=== PATIENT | male | born 1955 | race Caucasian/White ===

== ENCOUNTER → 2017-12-29 | Outpatient (CLI) | payer BC ==
[~2017-12-29] MED LIST: REGADENOSON 0.4 MG/5 ML DISP.SYRIN. IV
== END | disposition home or self-care (01) ==
LOC: PCVCIMAG 15:14
DX: Z01.818 Encounter for other preprocedural examination (principal); R07.89 Other chest pain; R06.09 Other forms of dyspnea; E66.9 Obesity, unspecified; Z68.32 Body mass index [BMI] 32.0-32.9, adult
CPT/HCPCS: 78452; 93017; A9500; J2785

== ENCOUNTER → 2020-05-02 | Outpatient (CLI) | payer BC ==
[~2020-05-02] MED LIST changes: +ASCO500C PO; +ASPI-424 PO; +CALC-31 PO; +CLOP75TA PO; +DIPH25CA58 PO; +EZET10TA20 PO; +GLUC-11 PO; +ISOS30TA19 PO; +LISI-338 PO; +LISI10TA2 PO; +LYSI500T8 PO; +METF500T16 PO; +METO25TA4 PO; +NITR0.4T22 SL; +OMEG1CAP27 PO; +PRAV40TA2 PO; -REGADENOSON 0.4 MG/5 ML DISP.SYRIN. IV; +SILD20TA4 PO; +UBID300C PO
== END ==
LOC: LAB 15:09
PROVIDERS: ATTEND Internal Medicine Cardiovascular Disease
DX: Z01.812 Encounter for preprocedural laboratory examination (principal); Z20.828 Contact with and (suspected) exposure to other viral communicable diseases
CPT/HCPCS: U0003

== ENCOUNTER 2020-05-06 10:54 | Outpatient (CLI) | payer BC ==
[2020-05-06] VITALS (9 sets, daily range): BP systolic 101–134; BP diastolic 62–78
[~2020-05-06] VITALS: Ht 182.9 cm; Wt 104.3 kg
[2020-05-06 11:42] LABS: HEMATOCRIT 42.8 % (39.0-53.0); HEMOGLOBIN 15.1 g/dL (13.0-17.5); RED BLOOD COUNT 4.65 x10^6/uL (4.30-5.70); WHITE BLOOD COUNT 4.1 x10^3/uL (4.0-11.0)
[2020-05-06 11:49] LABS: CALCIUM 8.6 mg/dL (8.5-10.1); CREATININE 0.8 mg/dL (0.7-1.3); GFR 97.3; POTASSIUM 4.4 mmol/L (3.5-5.1)
[2020-05-06 11:50] LABS: PROTHROMBIN TIME PATIENT 13.9 SEC (11.7-14.0)
[2020-05-06] MEDS ORDERED: LIDOCAINE 1% PF 2 ML VIAL. ONE (12:21)
[2020-05-06] MEDS ORDERED: HEPARIN for ARTERIAL LINE 1,500 ML ONE (12:21)
[2020-05-06] MEDS ORDERED: IOHEXOL 300 MG/ML 100ML VIAL. ONE (12:21)
[2020-05-06] MEDS ORDERED: fentaNYL PF VIAL 100 MCG/2 ML VIAL ONE (12:30)
[2020-05-06] MEDS ORDERED: VERAPAMIL 5 MG/2 ML VIAL. ONE (12:31)
[2020-05-06] MEDS ORDERED: NITROGLYCERIN 200 MCG/2 ML SYRINGE FOR CATH/VASC LAB. ONE ×2 (12:31→13:20)
[2020-05-06] MEDS ORDERED: MIDAZOLAM HCL/PF 2 MG/2 ML VIAL. ONE (12:31)
[2020-05-06] MEDS ORDERED: HEPARIN for IV BOLUS 10,000 UNIT/10 ML VIAL. ONE (12:31)
--- NOTE | 2020-05-06 12:59 | PDOC ---
MODERATE SEDATION ASSESSMENT RISKS/ALTERNATIVES Risks/Alternatives Risks and alternatives of this type of sedation and procedure discussed with: RISK/ALTERNATIVES: Patient H & P ON CHART H & P H & P on chart and reviewed for co-morbid conditions and appropriate labs. H&P ON CHART: Yes STATUS PREG STATUS ASSESSED: N/A MEDS/ALLERGIES REVIEWED Meds/Allergies Reviewed Medications and Allergies including time and route of recently administered narcotics and sedatives. MEDS/ALLERGIES REVIEWED: Yes ASA RATING ASA RATING: II AIRWAY ASSESSMENT Airway Assessment Airway patency, oral function limitations, presence of caps, crowns, dentures, partials, and ability to extend neck assessed. AIRWAY ASSESSMENT: Yes MALLAMPATI SCORE MALLAMPATI SCORE: II PRE-SEDATION ASSESSMENT PRE-SEDATION ASSESSMENT: Yes DEJAN JOHNSON MD May 06, 2020 12:59
[2020-05-06] MEDS ORDERED: MIDAZOLAM HCL/PF 2 MG/2 ML VIAL. IV ONE (13:15)
[2020-05-06] MEDS ORDERED: LIDOCAINE 1% PF 2 ML VIAL. INJ ONE (13:15)
[2020-05-06] MEDS ORDERED: VERAPAMIL 5 MG/2 ML VIAL. IART ONE (13:15)
[2020-05-06] MEDS ORDERED: HEPARIN for IV BOLUS 10,000 UNIT/10 ML VIAL. IART ONE (13:15)
[2020-05-06] MEDS ORDERED: CONTRAST GIVEN. MC PRN (13:15)
[2020-05-06] MEDS ORDERED: NITROGLYCERIN 200 MCG/2 ML SYRINGE FOR CATH/VASC LAB. IART ONE (13:15)
[2020-05-06] MEDS ORDERED: IV NORMAL SALINE 500ML BAG 500 ML IV ONE (13:15)
[2020-05-06] MEDS ORDERED: fentaNYL PF VIAL 100 MCG/2 ML VIAL IV ONE (13:15)
[2020-05-06] MEDS ORDERED: IOHEXOL 300 MG/ML 100ML VIAL. IART ONE (13:15)
[2020-05-06] MEDS ORDERED: TIROFIBAN 5MG -0.9% NS 100 ML IV ONE (13:20)
[2020-05-06] MEDS ORDERED: EZET10TA20 PO (13:25)
[2020-05-06] MEDS ORDERED: LISI10TA2 PO (13:33)
[2020-05-06] MEDS ORDERED: DIPH25CA58 PO (13:33)
[2020-05-06] MEDS ORDERED: ASCO500C PO (13:33)
[2020-05-06] MEDS ORDERED: ADENOSINE 90 MG/30 ML VIAL. IV ONE (13:33)
[2020-05-06] MEDS ORDERED: PRAV40TA2 PO (13:33)
[2020-05-06] MEDS ORDERED: SILD20TA4 PO (13:33)
[2020-05-06] MEDS ORDERED: OMEG1CAP27 PO (13:37)
[2020-05-06] MEDS ORDERED: CALC-31 PO (13:37)
[2020-05-06] MEDS ORDERED: GLUC-11 PO (13:37)
[2020-05-06] MEDS ORDERED: METO25TA4 PO (13:37)
[2020-05-06] MEDS ORDERED: METF500T16 PO (13:37)
[2020-05-06] MEDS ORDERED: ASPI-424 PO (13:37)
[2020-05-06] MEDS ORDERED: NITR0.4T22 SL (13:37)
[2020-05-06] MEDS ORDERED: LYSI500T8 PO (13:37)
[2020-05-06] MEDS ORDERED: UBID300C PO (13:37)
[2020-05-06] MEDS ORDERED: ADENOSINE 90 MG in IV NORMAL SALINE 50ML 90 ML IV ONE (14:00)
[2020-05-06] MEDS ORDERED: TIROFIBAN 5MG -0.9% NS 100 ML IV PRN (14:00)
[2020-05-06] MEDS ORDERED: LISI-338 PO (14:07)
[2020-05-06] MEDS ORDERED: ISOS30TA19 PO (14:07)
[2020-05-06] MEDS ORDERED: HEPARIN for IV BOLUS 10,000 UNIT/10 ML VIAL. IV ONE (14:15)
[2020-05-06] MEDS ORDERED: CLOP75TA PO (15:26)
--- NOTE | 2020-05-06 15:27 | CARD ---
MR#: [id number] Date of Study: 05/06/2020 Ordering Physician: DEJAN HERNANDEZ, Referring Physician: DEJAN HERNANDEZ, Tech: DARRYL ZULUAGA RTR APPROVED REPORT Technologist: DARRYL ZULUAGA RTR Nurse: Amanda Steinberg R.N. Procedure(s) performed: MODERATE SEDATION TIME: 72 MIN FLUORO TIME: 10.3 MIN DOSE: 102 GYCM2 CONTRAST: 150CC OMNI 300 LHC, Coronary angiography, Left ventriculography iFR, FFR of the RCA HISTORY The patient is a 65 year-old male with a history of : diabetes mellitus with treatment, coronary alexis ry disease, hypertension, dyslipidemia. INDICATION The indication(s) include : unstable angina , dyspnea. [facility] Clinical Frailty Scale [facility] Clinical Frailty Scale: Managing Well Heart Failure Heart Failure: Yes If Yes, Newly Diagnosed: Yes If Yes, HF Type: Diastolic If Yes, NYHA Class: Class II PROCEDURE NARRATIVE After appropriate informed consent the patient was brought to the catheterization laboratory and the right wrist was prepped and draped in usual sterile fashion. Under 1% lidocaine local anesthesia a 6 [place] sheath was placed in the right radial artery without a ny difficulty. Diagnostic angiography was performed with a 6 [place] TIG catheter and a 6 [place] pigt ail catheter. Left ventriculography was performed and a pullback was also performed. Findings: Aorta 90/50 LVEDP 15 mmHg No LV to aortic gradient Left ventriculogram: EF 55% no mitral or aortic insufficiency. Coronary angiography: Left main is a moderate to large caliber vessel with normal angiographic appearance LAD is a moderate caliber vessel with mild proximal calcification and mild diffuse irregularities of up to 30% D1 is a moderate caliber vessel with a patent proximal stent and mild luminal irregularities of appro ximately 30% Left circumflex is a moderate caliber vessel with a patent proximal stent. The mid vessel has a 40% stenosis OM1 is a moderate caliber vessel with mild luminal irregularities of up to 30%. RCA is a large caliber dominant vessel with a mid 50% stenosis. RPDA is a moderate caliber vessel with an ostial 50% stenosis RPL is a small caliber vessel with an ostial and proximal 80% stenosis Interventional technique: Given the patient's symptoms, intermediate coronary disease in the major branches a decision was made to perform an IFR. Heparin was used for anticoagulation and a bolus of tirofiban was administered. A [place] pressure wire was advanced to the distal RPL after appropriate normalization and IFR was f ound to be 0.82. A pullback was performed into the distal RCA past the mid lesion and this IFR was w ithin normal limits at 0.94. The wire was then redirected to the distal PDA and a repeat IFR value w as 0.94. Multiple doses of nitroglycerin were administered. Despite this the IFR value in the mid R CA and the PDA was within normal limits. Next, a FFR study was performed with adenosine infusion at 140 mcg/kg/min and an IFR value was 0.84. Given a negative IFR and FFR values and lack of critical a ngina a decision was made to defer any further intervention. At case completion the right radial sheath was removed via external radial band and hemostasis was ac hieved. No acute complications Conclusion 1. Normal left-sided filling pressures 2. Three-vessel coronary artery disease with patent stents in the diagonal and circumflex vessels 3. Moderate to severe RCA disease with negative IFR in the major branches Recommendations 1. Aggressive medical therapy 2. Decrease lisinopril to 5 mg daily, add Imdur 30 mg daily and Plavix 75 mg daily. Continue low-do se beta-osbaldo. 3. Patient's main complaint is mostly fatigue and we will await to see if increasing activity, initi ation of medical therapy as noted above will improve his symptoms. He was also advised to lose weigh t. If these interventions do not improve his symptoms could consider high risk PCI of the RCA. Disc ussed with patient and his who are in agreement. Signed by : Dejan Hernandez, Electronically Approved : 05/06/2020 15:26:54
--- NOTE | 2020-05-06 16:40 | NUR ---
Discharge Note: FREEMAN SAMAYOA Discharge instructions and discharge home medications reviewed with Patient and a copy given. All questions have been answered and understanding verbalized. Dressing to R wrist, dry and intact, armboard in place. The following instructions and handouts were given: radial site care, sedation, CAD, plavix, and imdur. RX for plavix and imdur given to pt. Discontinued lines and drains: Peripheral IV intact. Patient discharged to Home or Self Care with Spouse via Wheelchair LENO RN Addendum: 05/06/20 at 1655 by HALIMA AMAYA RN Amended: Links added.
== END 2020-05-06 16:40 | disposition home or self-care (01) ==
LOC: CCL 10:54 → UNDOADMIN 13:30 → 2 NORTH 13:30 → CCL 16:40
PROVIDERS: ATTEND Internal Medicine Cardiovascular Disease
DX: I25.110 Atherosclerotic heart disease of native coronary artery with unstable angina pectoris (principal); I10 Essential (primary) hypertension; E11.9 Type 2 diabetes mellitus without complications; E78.00 Pure hypercholesterolemia, unspecified; Z79.899 Other long term (current) drug therapy; Z98.890 Other specified postprocedural states; Z79.82 Long term (current) use of aspirin; Z79.84 Long term (current) use of oral hypoglycemic drugs
CPT/HCPCS: 36415; 80048; 85027; 85610; 93458; 93571; 93572; 99152; 99153; C1769; C1887; C1892; J0153; J1644; J2250; J3010; J3246; J3490; J7040; Q9967

== ENCOUNTER → 2021-02-24 | Outpatient (CLI) | payer BC ==
[2020-05-06 16:25] VITALS: BP 107/62
[~2021-02-24] MED LIST changes: -LISI-338 PO; +LISI-517 PO; +LISI10TA16 PO; -LISI10TA2 PO; +REGADENOSON 0.4 MG/5 ML DISP.SYRIN. IV ONE
--- NOTE | 2021-02-24 18:01 | RAD ---
MR#: [id number] Date of Study: 02/24/2021 Ordering Physician: DEJAN JOHNSON, Referring Physician: PEDRO HAGEN Tech: CHRIST Frye, ARRT (R) (N) APPROVED REPORT Test Type: Pharmacological Stress Nurse/Tech: Savanna Jackson R.N. Test Indications: CAD Cardiac History: Cardiac stents,htn, DM Medications: See Electronic Medical Record Medical History: See Electronic Medical Record Resting ECG: SB W/BBB Resting Heart Rate: 47 bpm Resting Blood Pressure: 131/69mmHg Pretest Chest Pain: No chest pain Nurse/Tech Notes S1S2, lungs CTA Consent: The procedure was explained to the patient in lay terms. Informed consent was witnessed. Abdullahi eout was entered into [employer]. History and Stress Test performed by RT Ramila (R) (N) Pharm. Details Pharmacologic stress testing was performed using 0.4mg per 5ml of regadenoson given intravenously ove r 7-10 seconds. Stress Symptoms SOA POST EXERCISE Reason for Termination: Infusion complete Max HR: 68 bpm Max Blood Pressure: 117/64mmHg Blood Pressure response to exercise: Normal blood pressure response during stress. Heart Rate response to exercise: wnl Chest Pain: No. Arrhythmia: No. INTERPRETATION Stress EKG Conclusion: The resting EKG shows a sinus bradycardia with nonspecific ST-T wave changes i ncluding T wave depression. The stress EKG shows no significant changes from baseline. No EKG evidence of stress-induced ischemia. Imaging Protocol IMAGE PROTOCOL: Rest Tc-99m/stress Tc-99m 1 day Rest: Stress: Viability: Radiopharm.Tc99m [id number] Sestamibi Sylc88aWh 32.1mCi Img Date 02/24/2021 02/24/2021 Inj-Img Tjio40yqy. 60min. Rest Admin Site:IV - Right AntecubitalAdministrator:RT Ramila (R)(N) Stress Admin Site: IV - Right AntecubitalAdministrator: RT Ramila (R)(N) STRESS DATA End Diast. Vol.116.0mlAv. Heart Rate59.0bpm End Syst. Vol.44.0mlCO Index BSA4.2L/min Myocardial Wtqz911.0gEject. Pyvqhlhf37.0% Stress Rates Pk. Fill Rate2.61EDV/secLVtime Pk. Fill 133.16msec Pk. Empty Rate2.06ESV/secLVtime Pk. Xfxlt014.06msec 1/3 Pk. Fill1.72EDV/sec Stress Scores Regional WT3.00Summed WT14.00 Regional WM0.00Summed WM1.00 LV Perfusion The stress scans show slight thinning of the inferior wall. The rest scans show slight thinning of the inferior wall. Nuclear imaging shows no reversible ischemia. There is slight fixed thinning in the inferior wall wh ich is most consistent with an attenuation defect. Wall Motion Left ventricular systolic function is normal with no regional wall motion abnormalities and an ejecti on fraction of 60%. LV Perf. Quant 17 Seg. SSS1.00 17 Seg. SRS0.00 17 Seg. SDS1.00 Stress Defect Extent (% LAD)0.00Rest Defect Extent (% LAD)0.00Rev. Defect Extent (% LAD)0.00 Stress Defect Extent (% LCX) 0.00Rest Defect Extent (% LCX)0.00Rev. Defect Extent (% LCX)0.00 Stress Defect Extent (% RCA)0.00Rest Defect Extent (% RCA)0.00Rev. Defect Extent (% RCA)0.00 Stress Defect Extent (% CASEY)0.00Rest Defect Extent (% CASEY)0.00Rev. Defect Extent (% CASEY)0.00 Conclusion 1. No EKG evidence of stress-induced ischemia. 2. Nuclear imaging shows no reversible ischemia. 3. Nuclear imaging shows slight fixed thinning of the inferior wall which is most consistent with an attenuation defect. 4. Left ventricular systolic function is normal with no regional wall motion abnormalities and an eje ction fraction of 60%. 5. Moderately low risk Lexiscan nuclear stress test. Signed by : Levi Rivera MD Electronically Approved : 02/24/2021 18:01:08
== END ==
LOC: NM 08:46
PROVIDERS: ATTEND Internal Medicine Cardiovascular Disease
DX: I25.10 Atherosclerotic heart disease of native coronary artery without angina pectoris (principal)
CPT/HCPCS: 78452; 93017; A9500; J2785